=== PATIENT | male | born 1960 | race African-American/Black ===

== ENCOUNTER 2022-04-16 14:44 | Outpatient (CLI) | payer MEDICARE, MEDICAID, SELFPAY ==
--- NOTE | ~2022-04-16 | US_ITS ---
EXAMINATION: US renal BI DATE: 04/16/2022 15:18 INDICATION: Chronic kidney disease TECHNIQUE: Multiple grayscale and Doppler ultrasound images of the kidneys were obtained. COMPARISON: None. FINDINGS: The right kidney measures 11.2 x 6.3 x 5.6 cm. The left kidney measures 11.2 x 6.2 x 5.1 cm . The kidneys demonstrate normal parenchymal echogenicity. There is no hydronephrosis. The bladder is incompletely distended but appears normal. IMPRESSION: 1. Normal kidneys without hydronephrosis. Reviewed, dictated and finalized at location B. [employer]
== END 2022-04-16 14:45 | disposition home or self-care (01) ==
PROVIDERS: PCP Nurse Practitioner Family; Visit Provider Internal Medicine Nephrology
DX: E11.29 Type 2 diabetes mellitus with other diabetic kidney complication (principal); I12.9 Hypertensive chronic kidney disease with stage 1 through stage 4 chronic kidney disease, or unspecified chronic kidney disease; N18.31 Chronic kidney disease, stage 3a
CPT/HCPCS: 76775